=== PATIENT | male | born 1930 | race Caucasian/White ===

== ENCOUNTER → 2017-10-14 | Outpatient (CLI) | payer MEDICARE ==
[~2017-10-14] MED LIST: CHOL10003 PO; FAMO20TA7 PO; IRON PO; SIMV20TA3 PO; TERA5CAP3 PO; TERB250T3 PO; WARF5TAB7 PO
== END | disposition home or self-care (01) ==
LOC: CFH 16:19
PROVIDERS: ATTEND Internal Medicine
DX: I48.0 Paroxysmal atrial fibrillation (principal); R06.02 Shortness of breath; Z95.0 Presence of cardiac pacemaker
CPT/HCPCS: 71046

== ENCOUNTER → 2018-04-15 | Outpatient (CLI) | payer MEDICARE ==
[~2018-04-15] MED LIST changes: +WARF-36 PO; -WARF5TAB7 PO
== END | disposition home or self-care (01) ==
LOC: CFH 14:37
PROVIDERS: ATTEND Family Medicine
DX: K59.00 Constipation, unspecified (principal); Z95.0 Presence of cardiac pacemaker
CPT/HCPCS: 74022